=== PATIENT | male | born 1945 | race Caucasian/White ===

== ENCOUNTER 2019-08-30 09:32 | Outpatient (CLI) | payer MEDICARE, SELFPAY ==
--- NOTE | 2019-08-30 09:45 | ECG_ITS ---
Measurements Intervals [place] Rate: 78 P: 114 [place]: 165 QRS: -68 QRSD: 134 T: 83 QT: 390 QTc: 444 Interpretive Statements SINUS RHYTHM WITH SINUS ARRHYTHMIA INTRAVENTRICULAR CONDUCTION DELAY LEFT ANTERIOR FASCICULAR BLOCK LEFT VENTRICULAR HYPERTROPHY AND ST-T CHANGE BORDERLINE ST-T WAVE ABNORMALITY- LATERAL LEADS ABNORMAL ECG Electronically Signed On 08-30-2019 10:04:00 CDT by Otto Webb D.O.
[2019-08-30 09:52] LABS: Basophils Absolute Auto 0.06 K/mm3 (0.00-0.10); Basophils Percent Auto 0.9 % (0.0-1.0); Eosinophils Absolute Auto 0.34 K/mm3 (0.02-0.50); Eosinophils Percent Auto 4.8 % (1.0-6.0); Hematocrit 43.2 % (37.0-46.0); Hemoglobin 14.3 g/dL (12.4-15.3); Immature Granulocyte Absolute 0.02 K/mm3 (0.00-0.00); Immature Granulocyte Percent A 0.3 % (0.0-0.0); Lymphocytes Absolute Auto 1.19 K/mm3 (1.10-4.50); Lymphocytes Percent Auto 16.9 % (18.0-42.0); Mean Corpuscular HGB Conc 33.1 g/dL (32.0-36.0); Mean Corpuscular Hemoglobin 32.1 pg (27.0-31.0); Mean Corpuscular Volume 97.1 fL (78.0-102.0); Mean Platelet Volume 8.5 fl (8.7-11.0); Monocytes Percent Auto 11.3 % (2.0-11.0); Neutrophils Absolute Auto 4.6 K/mm3 (1.7-7.2); Neutrophils Percent Auto 65.8 % (50.0-70.0); Platelet Count Result 189 K/mm3 (150-420); Red Blood Count 4.45 M/mm3 (4.70-6.10); Red Cell Distribution Width 13.7 % (11.6-14.4); White Blood Count 7.1 K/mm3 (4.8-10.8)
[2019-08-30 11:38] LABS: Alanine Aminotransferase 27 U/L (16-63); Albumin Level 4.1 g/dL (3.4-5.0); Alkaline Phosphatase 77 U/L (46-116); Anion Gap 14.6 mmol/L (7-16); Aspartate Amino Transferase 17 U/L (15-37); Bilirubin Direct 0.1 mg/dL (0-0.2); Bilirubin,Total 0.4 mg/dL (0.00-1.00); Blood Urea Nitrogen 23 mg/dL (7-18); Calcium 8.9 mg/dL (8.5-10.1); Carbon Dioxide 27 mmol/L (21-32); Chloride 103 mmol/L (98-108); Estimated Glomerular Filt Rate > 60; Folic Acid 18.7 ng/mL (8.6->20); Glucose 91 mg/dL (70-99); Osmolality Calculated 293 mOsm/kg (285-295); Potassium 4.6 mmol/L (3.5-5.1); Sodium 140 mmol/L (136-145); Thyroid Stimulating Hormone 1.55 uIU/mL (0.36-3.74); Total Protein 7.1 g/dL (6.4-8.2); Vitamin B12 346 pg/mL (193-986)
[2019-09-02 16:21] LABS: Vitamin D 25 Hydroxy 51 ng/mL (30-100)
--- NOTE | 2019-09-03 10:14 | WPDHOLTEREM ---
Holter/Event Monitor Holter/Event Monitor Date of procedure: 08/30/19 Procedure Type: 24 hour holter monitor Indications: Palpitations Conclusion: 1. 24 hour holter monitor on 08/30/19. 2. Underlying rhythm is sinus rhythm. HR range 44-111 bpm; average HR 64 bpm. 3. There are 380 premature supraventricular complexes, 4 supraventricular couplets, 3 supraventricular bigeminy and 57 supraventricular trigeminy. No supraventricular tachycardia. 4. There are 350 premature ventricular complexes and 3 ventricular bigeminy. No ventricular tachycardia. 5. No sinoatrial or atrioventricular blocks. Baseline intraventricular conduction delay. No significant pauses greater than 2 seconds. 6. Patient reports symptoms of chest pain and left arm pain twice which demonstrate sinus rhythm, HR range 77-82 bpm.
== END 2019-08-30 09:33 | disposition home or self-care (01) ==
PROVIDERS: PCP Family Medicine; Visit Provider Family Medicine
DX: R00.2 Palpitations (principal); Z79.899 Other long term (current) drug therapy; E55.9 Vitamin D deficiency, unspecified; R53.83 Other fatigue; G62.9 Polyneuropathy, unspecified
CPT/HCPCS: 36415; 80048; 80076; 82306; 82607; 82746; 84443; 85025; 93005; 93225; 93226

== ENCOUNTER 2019-10-23 07:12 | Outpatient (CLI) | payer MEDICARE, SELFPAY ==
[2019-10-23 07:23] LABS: Basophils Absolute Auto 0.06 K/mm3 (0.00-0.10); Basophils Percent Auto 0.9 % (0.0-1.0); Eosinophils Percent Auto 6.1 % (1.0-6.0); Hematocrit 42.1 % (37.0-46.0); Hemoglobin 14.2 g/dL (12.4-15.3); Immature Granulocyte Absolute 0.02 K/mm3 (0.00-0.00); Immature Granulocyte Percent A 0.3 % (0.0-0.0); Lymphocytes Absolute Auto 1.16 K/mm3 (1.10-4.50); Lymphocytes Percent Auto 17.8 % (18.0-42.0); Mean Corpuscular HGB Conc 33.7 g/dL (32.0-36.0); Mean Corpuscular Hemoglobin 32.9 pg (27.0-31.0); Mean Corpuscular Volume 97.7 fL (78.0-102.0); Mean Platelet Volume 8.2 fl (8.7-11.0); Monocytes Absolute Auto 0.85 K/mm3 (0.10-0.90); Monocytes Percent Auto 13.1 % (2.0-11.0); Neutrophils Percent Auto 61.8 % (50.0-70.0); Platelet Count Result 194 K/mm3 (150-420); Red Blood Count 4.31 M/mm3 (4.70-6.10); Red Cell Distribution Width 13.7 % (11.6-14.4); White Blood Count 6.5 K/mm3 (4.8-10.8)
[2019-10-23 09:06] LABS: Alanine Aminotransferase 22 U/L (16-63); Albumin Level 3.7 g/dL (3.4-5.0); Alkaline Phosphatase 80 U/L (46-116); Anion Gap 10.9 mmol/L (7-16); Aspartate Amino Transferase 16 U/L (15-37); Bilirubin Direct 0.1 mg/dL (0-0.2); Bilirubin,Total 0.2 mg/dL (0.00-1.00); Blood Urea Nitrogen 20 mg/dL (7-18); Carbon Dioxide 33 mmol/L (21-32); Chloride 102 mmol/L (98-108); Estimated Glomerular Filt Rate > 60; Folic Acid 11.6 ng/mL (8.6->20); Glucose 93 mg/dL (70-99); Osmolality Calculated 294 mOsm/kg (285-295); Potassium 4.9 mmol/L (3.5-5.1); Sodium 141 mmol/L (136-145); Thyroid Stimulating Hormone 2.44 uIU/mL (0.36-3.74); Total Protein 6.7 g/dL (6.4-8.2); Vitamin B12 307 pg/mL (193-986)
[2019-10-25 11:12] LABS: Vitamin D 25 Hydroxy 75 ng/mL (30-100)
== END 2019-10-23 07:13 | disposition home or self-care (01) ==
LOC: CHSLAB 07:15
PROVIDERS: PCP Family Medicine; Visit Provider Family Medicine
DX: R00.2 Palpitations (principal); R53.83 Other fatigue; G62.9 Polyneuropathy, unspecified; Z79.899 Other long term (current) drug therapy; E55.9 Vitamin D deficiency, unspecified
CPT/HCPCS: 36415; 80048; 80076; 82306; 82607; 82746; 84443; 85025

== ENCOUNTER 2020-03-07 14:23 | Outpatient (CLI) | payer MEDICARE, SELFPAY ==
--- NOTE | ~2020-03-07 | XR_ITS ---
EXAMINATION: XR_CERV2-3V_CR EXAM DATE: 03/07/2020 15:15 INDICATION: Cervicalgia, bilateral upper extremity numbness. TECHNIQUE: Cervical spine frontal, lateral, lateral swimmers, and open-mouth odontoid projections. C omparison is made to prior examination from 10/29/2016. FINDINGS: There is moderate disc disease at C5-6, mild at C6-7. The vertebral body and disc heights are otherwise well maintained. The vertebral bodies are aligned in the AP dimension. The odontoid pro cess is intact. The lateral masses of C1 line up with C2. Prevertebral soft tissue and pre-dens spac e are within normal limits. Surgical clips could be from right endarterectomy. There are left carotid bulb arterial calcifications. There is severe right-sided facet arthropathy at C4-5, probably otherw ise overall moderate cervical arthropathy. IMPRESSION: Moderate C5-6 disc disease and moderate cervical arthropathy. Reviewed, dictated and finalized at location A.
--- NOTE | ~2020-03-07 | XR_ITS ---
EXAMINATION: XR shoulder LT min 2V DATE: 03/07/2020 15:15 INDICATION: Left shoulder pain TECHNIQUE: AP internally and externally rotated, AP oblique externally rotated and transscapular Y vi ews of the left shoulder were obtained. COMPARISON: None FINDINGS: Normal alignment. No fracture.Advanced left glenohumeral osteoarthritis with remodeling of the humer al head and to lesser degree the glenoid. Moderate acromioclavicular osteoarthritis. Severe lower cer vical facet osteoarthritis. Opacification of the left hemithorax with one loss indicated by leftward shift of the trachea and with suture line and surgical clips at the left upper hemithorax suggesting at least partial left pneumonectomy. Correlate with surgical history. Few additional surgical clips a t the base of the right neck. IMPRESSION: Advanced left glenohumeral osteoarthritis. Reviewed, dictated and finalized at location B.
--- NOTE | ~2020-03-07 | XR_ITS ---
EXAMINATION: XR shoulder RT min 2V DATE: 03/07/2020 15:15 INDICATION: Right shoulder pain TECHNIQUE: AP internally and externally rotated, AP oblique externally rotated and transscapular Y vi ews of the right shoulder were obtained. COMPARISON: None FINDINGS: Normal alignment. No fracture.Advanced right glenohumeral osteoarthritis with prominent remodeling o f the right humeral head and glenoid and large marginal osteophytes. Mild to moderate right acromiocl avicular osteoarthritis. Visualized portion of the right lung are clear. Surgical clips at the base o f the right neck. IMPRESSION: Advanced right glenohumeral osteoarthritis. Reviewed, dictated and finalized at location B.
== END 2020-03-07 14:24 | disposition home or self-care (01) ==
LOC: CHSIMG 14:26
PROVIDERS: PCP Family Medicine; Visit Provider Family Medicine
DX: M25.511 Pain in right shoulder (principal); M25.512 Pain in left shoulder; M54.2 Cervicalgia
CPT/HCPCS: 72040; 73030

== ENCOUNTER 2020-06-20 09:07 | Outpatient (CLI) | payer MEDICARE, SELFPAY ==
--- NOTE | ~2020-06-20 | XR_ITS ---
EXAMINATION: XR chest 2V DATE: 06/20/2020 09:27 INDICATION: Asthma presenting with cough. TECHNIQUE: frontal and lateral views of the chest were obtained. COMPARISON: Chest radiograph dated 05/09/2017 and 02/06/2017 FINDINGS: No interval change in complete opacification of the left hemithorax with associated volume loss resul ting in leftward shift of the heart and mediastinum. Multiple surgical clips in the mid to upper left hemithorax. Findings consistent with reported history of prior left pneumonectomy. Compensatory hype rexpansion of the right lung. Unchanged chronic mild linear atelectasis/scarring at the right costoph renic angle. No other airspace opacities, pulmonary edema, pleural effusion or pneumothorax. Cardiac silhouette is obscured. Severe bilateral glenohumeral osteoarthritis. Mild thoracic spondylosis. IMPRESSION: 1. Status post complete left pneumonectomy with chronic mild atelectasis/scarring at the right costop hrenic angle Reviewed, dictated and finalized at location B. E AND SCRAP CRUSHER IMPRESSION: 1. Status post complete left pneumonectomy with chronic mild atelectasis/scarri ng at the right costophrenic angle
== END 2020-06-20 09:08 | disposition home or self-care (01) ==
LOC: CHSIMG 09:09
PROVIDERS: PCP Family Medicine; Visit Provider Family Medicine
DX: R05 Cough (principal)
CPT/HCPCS: 71046

== ENCOUNTER 2020-07-02 09:11 | Outpatient (CLI) | payer MEDICARE, SELFPAY ==
--- NOTE | ~2020-07-02 | MR_ITS ---
EXAMINATION: MR brain/brain stem wo/w con DATE: 07/02/2020 11:24 INDICATION: Dizziness and giddiness. TECHNIQUE: Magnetic resonance imaging (MRI) of the brain and brainstem was performed without and with 19 mL MultiHance intravenous contrast. Sequences included sagittal and axial T1-weighted FSE, axial diffusion-weighted FS EPI, axial T2*-weighted GRE, axial T2-weighted FLAIR Propeller, and axial T2-we ighted Propeller. Postcontrast sequences included axial and coronal T1-weighted FSE. Apparent diffusi on coefficient (ADC) maps were created. COMPARISON: Brain MRI 08/29/2012, carotid ultrasound 09/05/15 FINDINGS: There is no intracranial hemorrhage, acute infarction, or abnormal intracranial mass lesion . There are scattered areas of nonspecific increased T2-weighted signal intensity in the cerebral whi te matter. The ventricles are normal in size. There is loss of the normal left internal carotid arter y flow void, consistent with occlusion. The orbits are normal. The paranasal sinuses are clear. There are trace bilateral mastoid effusions. IMPRESSION: 1. Mild nonspecific cerebral white matter disease, which likely represents chronic small vessel ische rufus disease. 2. 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 Reviewed, dictated and finalized at location A. ORY TEACHER IMPRESSION: 1. Mild nonspecific cerebral white matter disease, which likely represents chief investigator patrice small vessel ischemic disease. 2. 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
[2020-07-02 09:46] LABS: Estimated Glomerular Filt Rate > 60
== END 2020-07-02 09:12 | disposition home or self-care (01) ==
PROVIDERS: PCP Family Medicine; Visit Provider Family Medicine
DX: R42 Dizziness and giddiness (principal); R41.82 Altered mental status, unspecified
CPT/HCPCS: 70553; A9577

== ENCOUNTER 2021-01-19 09:07 | Outpatient (CLI) | payer MEDICARE, SELFPAY ==
--- NOTE | ~2021-01-19 | XR_ITS ---
EXAMINATION: XR hip RT 2V w AP pelvis EXAM DATE: 01/19/2021 09:44 INDICATION: Pain in right hip, fall x 3 weeks. TECHNIQUE: Right hip frontal, 'frog leg' projections for interpretation. Frontal projection pelvis. Comparison is made to prior examination from 07/03/2015. FINDINGS: There are bilateral hip arthroplasties, the right is completely imaged and intact. Sacrum, sacroiliac joints, sacral arcuate lines are intact. There are no acute fractures identified. Calcific ations in the pelvis are believed to be phleboliths. IMPRESSION: 1. No acute pelvic, right hip findings. 2. Bilateral hip arthroplasties. Reviewed, dictated and finalized at location B.
== END 2021-01-19 09:08 | disposition home or self-care (01) ==
LOC: CHSIMG 09:09
PROVIDERS: PCP Family Medicine; Visit Provider Family Medicine
DX: M25.551 Pain in right hip (principal)
CPT/HCPCS: 73502

== ENCOUNTER 2021-04-18 10:34 | Emergency (ER) | payer MEDICARE, SELFPAY ==
--- NOTE | ~2021-04-18 | XR_ITS ---
EXAMINATION: XR chest 1V portable INDICATION: Chest pain and shortness of breath TECHNIQUE: Portable AP chest at 1118 hours COMPARISON: 06/20/2020 FINDINGS: There is unchanged complete opacification of the left hemithorax with associated volume los s and leftward shift of the heart and mediastinal contents, likely pneumonectomy. The right lung is c lear. The heart size is obscured. There is advanced osteoarthritis of the shoulders. IMPRESSION: 1. No acute cardiopulmonary abnormality. 2. Complete opacification of left hemithorax and volume loss, consistent with left pneumonectomy. Reviewed, dictated and finalized at location A. RINTENDENT CONSTRUCTION IMPRESSION: 1. No acute cardiopulmonary abnormality. 2. Complete opacification of left hemithorax and volume loss, consistent with l eft pneumonectomy.
[2021-04-18 10:39] VITALS: PULSE 86
--- NOTE | 2021-04-18 10:39 | ECG_ITS ---
Measurements Intervals [place] Rate: 87 P: 48 [place]: 157 QRS: -64 QRSD: 138 T: 106 QT: 367 QTc: 444 Interpretive Statements SINUS RHYTHM INTRAVENTRICULAR CONDUCTION DELAY LEFT VENTRICULAR HYPERTROPHY AND ST-T CHANGE POOR R WAVE PROGRESSION, ANTERIOR LEADS MINIMAL Q WAVES- HIGH LATERAL LEADS BORDERLINE ECG Electronically Signed On 04-19-2021 9:32:33 PSYCHOLOGIST by Otto Webb D.O.
[2021-04-18 10:44] VITALS: BP 173/111; PULSE 83; RESP 24; TEMP 36.6; O2SAT 95
--- NOTE | 2021-04-18 10:58 | ED.GENADULT ---
HPI - General Adult General Chief complaint: Shortness of Breath/Dyspnea Stated complaint: chest tightness, SOB, cough, sore throat Time Seen by Provider: 04/18/21 10:39 Source: patient Mode of arrival: ambulatory Limitations: no limitations History of Present Illness HPI narrative: Vicente is a 76M with a PMH of lung cancer s/p left lung removal, HTN, RLS, and tobacco abuse that presented to the ED with 2 weeks of worsening cough, sputum production and SOB. He has CP only with a cough. He just couldn't take it any more so he came in to the ED. No syncope, nausea, vomiting, fevers or chills removed. Related Data Home Medications Medication Instructions Recorded Confirmed Adult Aspirin 81 mg BYMOUTH DAILY 04/18/21 04/18/21 dicyclomine 20 mg PO BID 04/18/21 04/18/21 metoprolol tartrate 25 mg PO DAILY 04/18/21 04/18/21 pregabalin 04/18/21 pregabalin 04/18/21 pregabalin [Lyrica] 75 mg PO BID 04/18/21 04/18/21 ropinirole 0.5 mg PO DAILY 04/18/21 04/18/21 tamsulosin 0.4 mg BYMOUTH DAILY 04/18/21 04/18/21 trazodone 100 mg PO DAILY 04/18/21 04/18/21 Allergies Allergy/AdvReac Type Severity Reaction Status Date / Time No Known Allergies Allergy Verified 04/18/21 10:46 Review of Systems Constitutional: Constitutional: Denies chills, Reports fatigue and Denies fever(s) Eyes: Eyes: Reports no additional eye complaints ENT: Reports system reviewed and no additional complaints, except as documented Cardiovascular: Cardiovascular: Reports as per HPI Respiratory: Respiratory: Reports as per HPI Gastrointestinal: Gastrointestinal: Reports no additional gastrointestinal complaints Genitourinary: Genitourinary: Reports no additional male genitourinary complaints Musculoskeletal: Musculoskeletal: Reports no additional musculoskeletal complaints Integumentary/Breasts: Skin/Breast: Reports system reviewed and no additional complaints, except as docu Neurologic: Reports system reviewed and no additional complaints, except as documented Psychiatric: Psychiatric: Reports no additional psychiatric complaints Endocrine: Endocrine: Reports no additional endocrine complaints Hematologic/Lymphatic: Hematologic/Lymphatic: Reports no additional hematologic/lymphatic complaints Allergic/Immunologic: Allergic/Immunologic: Reports no additional allergic/immunologic complaints [facility] Family History Family History Mother Family history of malignant neoplasm of bone Family history of malignant neoplasm of breast in first degree relative Father Family history of heart disease in male family member before age 55 Social History Social History Smoking status: Heavy tobacco smoker Second hand tobacco smoke exposure: No Alcohol intake: current Exam Const: General: no acute distress and alert; No confusion Orientation/consciousness: patient oriented x3 Limitations: No altered mental status HENMT: Head: normal to inspection Other: atrauamtic Eyes: Conjunctivae: conjunctivae normal Pupils: Equal, round and reactive pupils present Neck: Neck: normal visual inspection Resp: Effort & Inspection: normal respiratory effort, labored and tachypneic Other: No breath sounds on the left. Diffuse wheezes and crackles on the right with prolonged expiratory phase Cardio: Rate: regular rate Rhythm: regular rhythm Skin: General skin exam: normal color Rashes: no rashes Neuro: General: patient oriented x3 and moves all extremities Course Course Emergency Course: Ordered inhaler, labs and CXR. EXAMINATION: XR chest 1V portable INDICATION: Chest pain and shortness of breath TECHNIQUE: Portable AP chest at 1118 hours COMPARISON: 06/20/2020 FINDINGS: There is unchanged complete opacification of the left hemithorax with associated volume loss and leftward shift of the heart and mediastinal contents, likely pneumonectomy.
[2021-04-18 10:59] LABS: Basophils Absolute Auto 0.07 K/mm3 (0.00-0.10); Basophils Percent Auto 0.9 % (0.0-1.0); Eosinophils Absolute Auto 0.32 K/mm3 (0.02-0.50); Eosinophils Percent Auto 3.9 % (1.0-6.0); Hematocrit 45.9 % (37.0-46.0); Hemoglobin 14.9 g/dL (12.4-15.3); Immature Granulocyte Absolute 0.03 K/mm3 (0.00-0.00); Immature Granulocyte Percent A 0.4 % (0.0-0.0); Lymphocytes Absolute Auto 1.37 K/mm3 (1.10-4.50); Lymphocytes Percent Auto 16.7 % (18.0-42.0); Mean Corpuscular HGB Conc 32.5 g/dL (32.0-36.0); Mean Corpuscular Volume 98.5 fL (78.0-102.0); Mean Platelet Volume 8.7 fl (8.7-11.0); Monocytes Absolute Auto 0.83 K/mm3 (0.10-0.90); Monocytes Percent Auto 10.1 % (2.0-11.0); Neutrophils Absolute Auto 5.6 K/mm3 (1.7-7.2); Platelet Count Result 201 K/mm3 (150-420); Red Blood Count 4.66 M/mm3 (4.70-6.10); Red Cell Distribution Width 13.4 % (11.6-14.4); White Blood Count 8.2 K/mm3 (4.8-10.8)
[2021-04-18 11:21] LABS: Alanine Aminotransferase 18 U/L (16-63); Albumin Level 3.7 g/dL (3.4-5.0); Alkaline Phosphatase 92 U/L (46-116); Anion Gap 9 mmol/L (8-16); Aspartate Amino Transferase 13 U/L (15-37); Bilirubin,Total 0.4 mg/dL (0.00-1.00); Blood Urea Nitrogen 20 mg/dL (7-18); Calcium 9.1 mg/dL (8.5-10.1); Carbon Dioxide 30 mmol/L (21-32); Chloride 102 mmol/L (98-108); Estimated CRCL calculation 51 ml/min; Estimated Glomerular Filt Rate > 60; Glucose 105 mg/dL (70-99); NT Pro B Type Natriuretic Pept 415 pg/mL (0-450); Osmolality Calculated 294 mOsm/kg (285-295); Potassium 4.3 mmol/L (3.5-5.1); Sodium 141 mmol/L (136-145); Total Protein 7.2 g/dL (6.4-8.2)
[2021-04-18 11:22] LABS: Troponin I 12.1 ng/L (0.00-60.4)
[2021-04-18] MEDS: IPRATROPIUM 0.5 MG/ALBUTEROL SULFATE 2.5 MG AMPUL.NEB 3 ML INHALATION (11:23)
[2021-04-18 11:26] VITALS: BP 130/90; PULSE 87; RESP 12; O2SAT 100
[2021-04-18 11:34] LABS: Influenza A QL RT-PCR Negative (Negative); Influenza B QL RT-PCR Negative (Negative); SARS-CoV-2 RNA PCR Negative (Negative)
[2021-04-18 11:55] VITALS: PULSE 82; O2SAT 100
[2021-04-18] MEDS: AZITHROMYCIN 250 MG TABLET 500 MG PO (12:12)
[2021-04-18] MEDS: predniSONE 40 MG, predniSONE 10 MG 50 MG PO (12:12)
[2021-04-18 12:13] VITALS: BP 149/91; PULSE 83; RESP 17; TEMP 36.8; O2SAT 97
== END 2021-04-18 12:15 | disposition home or self-care (01) ==
PROVIDERS: Emergency Provider Family Medicine
DX: J44.1 Chronic obstructive pulmonary disease with (acute) exacerbation (principal); Z20.822 Contact with and (suspected) exposure to COVID-19
CPT/HCPCS: 36415; 71045; 80053; 83880; 84484; 85025; 85610; 87502; 93005; 99283; 99284; A9270; C9803; J7512; U0003; U0005

== ENCOUNTER 2022-07-16 06:53 | Outpatient (CLI) | payer MEDICARE, SELFPAY ==
[2022-07-16 07:57] LABS: Cholesterol 184 mg/dL (0-200); HDL Direct 43 mg/dL (40-60); LDL Cholesterol Calculated 128 mg/dL (<130); Triglycerides 64 mg/dL (0-150)
== END 2022-07-16 06:54 | disposition home or self-care (01) ==
PROVIDERS: PCP Family Medicine Sports Medicine; Visit Provider Internal Medicine Cardiovascular Disease
DX: E78.5 Hyperlipidemia, unspecified (principal)
CPT/HCPCS: 36415; 80061

== ENCOUNTER 2022-08-09 07:54 | Outpatient (CLI) | payer MEDICARE, SELFPAY ==
[2022-08-12 16:51] LABS: Immunoglobulin E 42 kU/L (<=114)
[2022-08-13 19:57] LABS: Alpha-1-Antitrypsin, QN 206 mg/dL (83-199)
== END 2022-08-09 07:55 | disposition home or self-care (01) ==
LOC: CHSLAB 07:57
PROVIDERS: PCP Family Medicine Sports Medicine; Visit Provider Internal Medicine
DX: J44.9 Chronic obstructive pulmonary disease, unspecified (principal); R06.09 Other forms of dyspnea
CPT/HCPCS: 36415; 82103; 82785

== ENCOUNTER 2022-09-03 07:28 | Outpatient (RCR) | payer MEDICARE, SELFPAY ==
--- NOTE | 2022-09-03 09:03 | PTOPEVAL1 ---
Assessment and note entered by Myra Hobson DPT Evaluation Information Assessment Status Evaluation Diagnosis neck pain Onset 08/06/22 Subjective Information Patient reports that R sided neck pain started about 6-8 months ago. He reports that pain starts in the neck and will radiate to the shoulders and sometimes to the back. He reports that he gets frequent head aches and occasional tingling to the hands. He does report he has poor circulation which also causes numbness and tingling in B hands and feet. Patient reports difficulty with sleeping, sitting in his recliner and turning his head when driving. Patient is retired. He does still do yard and some house work. Reported Pain Level Pain Score 1: Self Report Assessment PT Clinical Summary Patient is a 77 year old male who presents to PT with cervical pain with radiating symptoms. He demonstrates impaired posture, hypomobiliy of the cervical spine and decreased cervical ORM impairing his ability to sleep, drive, and perform house hold tasks. He would benefit from skilled PT to address impairments and return to PLOF. Plan of Care Interventions Gait Training,Hot Pack/Cold Pack,Manual Therapy, Mechanical Traction,Neuro Re-education,Patient/ Caregiver Educati,Therapeutic Activities PT Services Indicated Yes Treatment Frequency and 2x weekly for 12 visits Duration These treatments will address the objective and functional deficits as defined above. The patient will be advanced safely and appropriately in order for the patient to progress towards his/her prior level of function. Additional exercises will be introduced and as well as a comprehensive home exercise program upon discharge, if needed, ?to ensure carryover of functional gains achieved in the clinic. This treatment plan has been reviewed and agreement upon by the patient.
== END 2022-09-03 16:23 | disposition home or self-care (01) ==
LOC: CHSPT 07:28
PROVIDERS: Visit Provider Family Medicine Sports Medicine
DX: M54.12 Radiculopathy, cervical region (principal); M54.2 Cervicalgia; M48.02 Spinal stenosis, cervical region; M47.812 Spondylosis without myelopathy or radiculopathy, cervical region; I73.9 Peripheral vascular disease, unspecified; R06.09 Other forms of dyspnea; R26.9 Unspecified abnormalities of gait and mobility; Z91.81 History of falling
CPT/HCPCS: 97014; 97110; 97161; G0283

== ENCOUNTER 2023-06-15 13:28 | Outpatient (CLI) | payer MEDICARE, SELFPAY ==
[2023-06-15 13:43] LABS: Basophils Absolute Auto 0.08 K/mm3 (0.00-0.10); Basophils Percent Auto 1.2 % (0.0-1.0); Eosinophils Absolute Auto 0.48 K/mm3 (0.02-0.50); Eosinophils Percent Auto 7.1 % (1.0-6.0); Hematocrit 41.3 % (37.0-46.0); Hemoglobin 13.4 g/dL (12.4-15.3); Immature Granulocyte Absolute 0.02 K/mm3 (0.00-0.00); Immature Granulocyte Percent A 0.3 % (0.0-0.0); Lymphocytes Absolute Auto 1.06 K/mm3 (1.10-4.50); Lymphocytes Percent Auto 15.7 % (18.0-42.0); Mean Corpuscular HGB Conc 32.4 g/dL (32.0-36.0); Mean Corpuscular Hemoglobin 31.5 pg (27.0-31.0); Mean Corpuscular Volume 97.2 fL (78.0-102.0); Mean Platelet Volume 8.8 fl (8.7-11.0); Monocytes Absolute Auto 0.74 K/mm3 (0.10-0.90); Monocytes Percent Auto 10.9 % (2.0-11.0); Neutrophils Absolute Auto 4.4 K/mm3 (1.7-7.2); Neutrophils Percent Auto 64.8 % (50.0-70.0); Platelet Count Result 191 K/mm3 (150-420); Red Blood Count 4.25 M/mm3 (4.70-6.10); Red Cell Distribution Width 14.3 % (11.6-14.4); White Blood Count 6.8 K/mm3 (4.8-10.8)
[2023-06-15 15:00] LABS: Alanine Aminotransferase 31 U/L (16-63); Albumin Level 3.6 g/dL (3.4-5.0); Alkaline Phosphatase 91 U/L (46-116); Anion Gap 9 mmol/L (8-16); Aspartate Amino Transferase 14 U/L (15-37); Bilirubin,Total 0.4 mg/dL (0.00-1.00); Blood Urea Nitrogen 23 mg/dL (7-18); Calcium 8.9 mg/dL (8.5-10.1); Carbon Dioxide 30 mmol/L (21-32); Chloride 102 mmol/L (98-108); Estimated Glomerular Filt Rate 50; Folic Acid 6.3 ng/mL (8.6->20); Glucose 92 mg/dL (70-99); Iron 64 ug/dL (65-175); Osmolality Calculated 295 mOsm/kg (285-295); Percent Iron Saturation 22 % (12-57); Potassium 4.7 mmol/L (3.5-5.1); Sodium 141 mmol/L (136-145); Total Protein 6.7 g/dL (6.4-8.2); Vitamin B12 240 pg/mL (193-986)
== END 2023-06-15 13:29 | disposition home or self-care (01) ==
LOC: CHSLAB 13:31
PROVIDERS: PCP Family Medicine Sports Medicine; Visit Provider Family Medicine Sports Medicine
DX: J44.9 Chronic obstructive pulmonary disease, unspecified (principal); R06.09 Other forms of dyspnea; D64.9 Anemia, unspecified; I73.9 Peripheral vascular disease, unspecified
CPT/HCPCS: 36415; 80053; 82607; 82746; 83540; 83550; 85025

== ENCOUNTER 2023-09-05 18:22 | Emergency (ER) | payer MEDICARE, SELFPAY ==
[2023-09-05 18:26] VITALS: BP 105/64; PULSE 86; RESP 18; TEMP 37.2; O2SAT 96
--- NOTE | 2023-09-05 20:39 | PC.NURSE ---
Pt wheeled to front line leader by son and stated he was leaving without being seen.
== END 2023-09-05 20:39 | disposition left against medical advice (07) ==
LOC: ANHED 22:43
PROVIDERS: PCP Family Medicine Sports Medicine
DX: T67.9XXA Effect of heat and light, unspecified, initial encounter (principal)
CPT/HCPCS: 99199

== ENCOUNTER 2023-10-11 08:36 | Outpatient (RCR) | payer MEDICARE, SELFPAY ==
--- NOTE | 2023-10-11 10:10 | OPREHPOC ---
Outpatient Therapy Plan of Care This is a Multidisciplinary Plan of Care that may contain components documented by all disciplines (PT, OT, and ST.) PT Problem 1 PT Problem #1 Knowledge Deficit PT Goal 1 Goal The patient will be independent in a home exercise program. Target Visit 4 PT Problem 2 PT Problem #2 Pain PT Goal 1 Goal The patient will report no greater than 2/10 cervical pain with ADLs. Target Visit 10 PT Problem 3 PT Problem #3 Impaired Range of Motion PT Goal 1 Goal The patient will demonstrate 70 degrees of cervical rotation without vertigo and minimal pain to improve ROM for safe driving. Target Visit 10 PT Problem 4 PT Problem #4 Impaired Functional Mobil PT Goal 1 Goal The patient will have 20% or less self perceived deficits per the Dizziness Handicap Inventory. Target Visit 10 PT Problem 5 PT Problem #5 Impaired Vestibular Syste PT Goal 1 Goal The patient will report 0 instances of vertigo with return to household tasks. Target Visit 10
--- NOTE | 2023-10-11 10:10 | PTOPEVAL1 ---
Assessment and note entered by Acacia Ochoa, PT Evaluation Information Assessment Status Evaluation Diagnosis Cervicalgia, Vertigo Subjective Information Gorge Mosher reports he has been having dizziness when he turns his head either direction or look up or down. He also gets dizziness when he sits up too fast. He reports it feels like he is moving when the dizziness occurs. He started noticing the dizziness about 2 months ago. He has also had dizziness about 8 years ago that was helped with PT. He also notes pain in the right side of the neck. Reported Pain Level Pain Score 4: Self Report Assessment PT Clinical Summary Gorge Mosher presents with dizziness and cervical pain that started 2 months ago. He has difficulty with turning his head side to side, looking up or down quickly, sitting or standing up quickly, and he is having daily headaches. He notes limitations with getting out of bed, driving , dressing, and using his riding mower. He objectively demonstrates decreased and painful cervical ROM, tenderness on the right lower cervical paraspinals and upper trapezius, nystagmus and vertigo with the left [place] Hallpike test, and decreased functional abilities. He perceives a 60% disability per the Dizziness Handicap Inventory. He will benefit from skilled PT to address these limitations. Plan of Care Interventions Electrical Stimulation,Hot Pack/Cold Pack,Manual Therapy,Neuro Re-education,Patient/Caregiver Educati,Prosthetic Training,Therapeutic Exercise, Other Other Interventions vestibular rehab PT Services Indicated Yes Treatment Frequency and 2 times a week for 10 visits Duration These treatments will address the objective and functional deficits as defined above. The patient will be advanced safely and appropriately in order for the patient to progress towards his/her prior level of function. Additional exercises will be introduced and as well as a comprehensive home exercise program upon discharge, if needed, ?to ensure carryover of functional gains achieved in the clinic. This treatment plan has been reviewed and agreement upon by the patient.
--- NOTE | 2024-01-18 10:24 | PCPTNOTE ---
Pt did not return to PT after eval. He is discharged. -Acacia Ochoa, PT
== END 2023-10-11 23:59 | disposition home or self-care (01) ==
LOC: CHSPT 08:36
PROVIDERS: Visit Provider Family Medicine Sports Medicine
DX: H81.12 Benign paroxysmal vertigo, left ear (principal); M47.812 Spondylosis without myelopathy or radiculopathy, cervical region; M48.02 Spinal stenosis, cervical region
CPT/HCPCS: 95992; 97110; 97161